=== PATIENT | male | born 1955 | race Caucasian/White ===

== ENCOUNTER 2017-03-13 09:18 | Emergency (ER) | payer SELFPAY ==
[~2017-03-13] VITALS: Ht 177.8 cm; Wt 86.0 kg
[~2017-03-13 09:18] MED LIST: MEDR4PAK3 PO; TRIA0.02 TOP
[2017-03-13 09:22] VITALS: BP 203/97; PULSE 98; RESP 16; TEMP 98.4; O2SAT 99
[2017-03-13] MEDS ORDERED: MEDI220T PO (09:34)
--- NOTE | 2017-03-13 09:45 | PD ---
HPI Chief Complaint: Injury Time Seen by Provider: 09:39 Travel History International Travel<30 days: No Contact w/Intl Traveler<30days: No Traveled to known affect area: No History of Present Illness HPI This patient complains of left hand pain. Last night he stumbled while going downstairs and fell down the stairs. He landed on his left hand. He has pain in the left thumb and left hand. It's his worst complaint. He did scrape his head and side of face as well but he has no LOC or headache or neck pain. Severity is moderate regarding hand pain. Duration 13 hours. No alleviating factors PFSH Past Medical History Tetanus Vaccination: > 5 Years Influenza Vaccination: No Past Surgical History Tonsillectomy: Yes Social History Alcohol Use: Yes (3-4 BEERS A DAY ) Tobacco Use: Yes (1 /2 PPD ) Substance Use: No Allergies-Medications (Allergen,Severity, Reaction): Coded Allergies: penicillin G (Unverified Allergy, Mild, RASH, 03/13/17) Reported Meds & Prescriptions Reported Meds & Active Scripts Active Percocet (Oxycodone-Acetaminophen) 5-325 mg Tab 1 Tab PO Q6H PRN Reported Naproxen Sodium 220 Mg Tab 220 Mg PO BID PRN Review of Systems General / Constitutional: No: Fever Eyes: No: Visual changes HENT: No: Headaches Cardiovascular: No: Chest Pain or Discomfort Respiratory: No: Shortness of Breath Gastrointestinal: No: Abdominal Pain Genitourinary: No: Dysuria Musculoskeletal: Positive: Pain Skin: No Rash Neurologic: No: Weakness Psychiatric: No: Depression Endocrine: No: Polydipsia Hematologic/Lymphatic: No: Easy Bruising Physical Exam Narrative GENERAL: Well-nourished, well-developed patient in no apparent distress. SKIN: Focused skin assessment reveals no rash and nodules. Skin is Warm and dry. HEAD: Abrasion to the scalp and right side of face . Normocephalic. EYES: Pupils equal and round. No scleral icterus. No injection or drainage. ENT: No nasal bleeding or discharge. Mucous membranes pink and moist. NECK: Trachea midline. No JVD. No midline tenderness CARDIOVASCULAR: Regular rate and rhythm. No murmur appreciated. RESPIRATORY: No accessory muscle use. Clear to auscultation. Breath sounds equal bilaterally. GASTROINTESTINAL: Abdomen soft, non-tender, nondistended. Hepatic and splenic margins not palpable. MUSCULOSKELETAL: There is swelling of the left thumb and first metacarpal area. No open wound. That area is tender. No clubbing. No cyanosis. No edema. NEUROLOGICAL: Awake and alert. No obvious cranial nerve deficits. Motor grossly within normal limits. Normal speech. PSYCHIATRIC: Appropriate mood and affect; insight and judgment normal. Data Data Last Documented VS Vital Signs Date Time Temp Pulse Resp B/P (MAP) Pulse Ox O2 Delivery O2 Flow Rate FiO2 03/13/17 10:50 97 19 171/84 (113) 95 Room Air 03/13/17 09:22 98.4 Orders Orders Hand, Complete ([id number]) (03/13/17 ) Splint Or Brace Apply/Monitor (03/13/17 11:19) Mandatory Outpatient Referral (03/13/17 11:19) [facility] Medical Decision Making Medical Screen Exam Complete: Yes Emergency Medical Condition: Yes Medical Record Reviewed: Yes Differential Diagnosis Hand fracture, thumb dislocation, contusion Narrative Course I have reviewed the patient's electronic medical record. I reviewed his left hand x-rays which show mildly displaced first metacarpal fracture He is neurologically intact with no headache. No indication for brain CT. I gave him head injury precautions. Placed in a left thumb spica splint. He is left-handed. He has no insurance and will need hand follow-up I placed mandatory referral I wrote him medication for pain He should ice and elevate Diagnosis Primary Impression: Hand fracture, left Qualified Codes: S62.92XA - Unspecified fracture of left wrist and hand, initial encounter for closed fracture Additional Impression: Head injury Qualified Codes: S09.90XA - Unspecified injury of head, initial encounter Additional Instructions: The patient was advised to follow up with hand physician and return if they worsen. Use head injury precautions The patient was warned about potential sedation for the medications they will receive on prescription. Ice and elevate left hand Med/Other Pt SpecificInfo: Prescription(s) given Scripts Oxycodone-Acetaminophen (Percocet) 5-325 mg Tab 1 TAB PO Q6H Y for PAIN, #20 TAB 0 Refills Prov: Shabbir Booker MD 03/13/17 Disposition: 01 DISCHARGE HOME Condition: Stable Shabbir Booker MD Mar 13, 2017 09:45
--- NOTE | 2017-03-13 10:23 | RADRPT ---
EXAM DATE/TIME: 03/13/2017 10:10 [facility] COMPARISON: No previous studies available for comparison. INDICATIONS : Left hand, first digit pain after falling down the stairs last night. MEDICAL HISTORY : Smoker. Previous fracture. SURGICAL HISTORY : None. ENCOUNTER: Initial ACUITY: 2 days PAIN SCORE: 10/10 LOCATION: Left hand, first digit. FINDINGS: Severely comminuted, intra-articular fracture seen of the base of the first metacarpal. There is mild impaction, especially the most medial fracture fragment which measures approximately 12 mm in size. Other bones of the left hand are intact. 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 CONCLUSION: Comminuted intra-articular fracture with mild displacement/impaction of the first metacarpal base. Jorge L Rodriguez MD on March 13, 2017 at 10:20 Board Certified Radiologist. This report was verified electronically.
[2017-03-13 10:50] VITALS: BP 171/84; PULSE 97; RESP 19; O2SAT 95
[2017-03-13] MEDS ORDERED: PERC5TAB12 PO (11:23)
[2017-03-13 12:03] VITALS: BP 171/83
== END 2017-03-13 12:09 | disposition home or self-care (01) ==
LOC: NEPD 09:18
DX: S09.90XA Unspecified injury of head, initial encounter (principal); S62.92XA Unspecified fracture of left hand, initial encounter for closed fracture; F17.200 Nicotine dependence, unspecified, uncomplicated; W10.9XXA Fall (on) (from) unspecified stairs and steps, initial encounter; Z88.0 Allergy status to penicillin
CPT/HCPCS: 73130; 99283; L3808

== ENCOUNTER 2017-03-20 08:58 | Emergency (ER) | payer SELFPAY ==
[~2017-03-20] VITALS: Ht 177.8 cm; Wt 86.0 kg
[~2017-03-20 08:58] MED LIST changes: +MEDI220T PO; -MEDR4PAK3 PO; +PERC5TAB12 PO; -TRIA0.02 TOP
[2017-03-20 08:59] VITALS: BP 204/98; PULSE 97; RESP 16; TEMP 98.4; O2SAT 99
[2017-03-20 09:28] VITALS: BP 180/96; PULSE 83; RESP 18; O2SAT 98
[2017-03-20] MEDS ORDERED: KETOROLAC TROMETHAMINE 60 MG/2 ML (IM) VIAL IM ONE (09:45)
[2017-03-20] MEDS ORDERED: IBUP800T23 PO (09:45)
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
== END 2017-03-20 09:54 | disposition home or self-care (01) ==
LOC: NEPD 08:58
DX: S62.92XD Unspecified fracture of left hand, subsequent encounter for fracture with routine healing (principal); M79.642 Pain in left hand; X58.XXXD Exposure to other specified factors, subsequent encounter; Z72.0 Tobacco use; Z88.0 Allergy status to penicillin
CPT/HCPCS: 96372; 99284; J1885; L3808